=== PATIENT | male | born 1960 | race Caucasian/White ===

== ENCOUNTER 2016-05-26 18:46 | Inpatient (IN) | payer BC ==
[~2016-05-26] VITALS: Ht 185.4 cm; Wt 147.9 kg
--- NOTE | ~2016-05-26 | PR ---
[place], [place] PROGRESS NOTE NAME: [id number] UNIT #: [id number] ROOM: 518 DOCTOR: PARAS VAZ MD BIRTHDATE: [birth year] DOS: SUBJECTIVE: The patient has had a terrible cough during the night and could not sleep much. OBJECTIVE: VITAL SIGNS: Graphic trend shows a pressure of 150/50, pulse of 94, respirations 20, temperature 98. LUNGS: Diminished breath sounds, few scattered wheezes heard this morning. HEART: Regular. ABDOMEN: Obese. EXTREMITIES: Without any edema. ASSESSMENT AND PLAN: 1. Cough with difficulty breathing and hypoxemia, acute hypoxic respiratory failure, most likely from atelectasis and early pneumonia, possible gram negative. 2. Benign hypertension. Echocardiogram shows left ventricular hypertrophy, already on meds, advice weight loss. 3. Reactive airway disease from possible underlying pneumonia with bronchospasm, IV steroids will be added. PARAS VAZ MD CM:PNTRANS [id number] PARAS VAZ MD 07/04/16 1446 interface
--- NOTE | ~2016-05-26 | PR ---
[place], [place] PROGRESS NOTE [id number] #: [id number] ROOM: 518 DOCTOR: PARAS VAZ MD BIRTHDATE: [birth year] DOS: 05/30/2016 SUBJECTIVE: The patient is doing much better. He had a good night sleep. His cough is mostly dry now. OBJECTIVE: VITAL SIGNS: Graphic trend shows a pressure of 138/73, pulse of 98, respirations 20, temperature 97.8. LUNGS: Diminished breath sounds, few fine wheezes heard. HEART: Regular. ABDOMEN: Obese, soft. EXTREMITIES: Without any edema. ASSESSMENT AND PLAN 1. Acute asthmatic bronchitis, improving on current treatment plan. 2. Benign hypertension with LVH controlled. 3. Hypoxic respiratory failure, acute. He did not have any further desaturation on the recent exercise oximetry. He is advised to stay off from work for a week and then have a PFT scheduled as an outpatient to make sure he is not developing asthma. PARAS VAZ MD CM:PNTRANS [id number] PARAS VAZ MD 05/30/161952 interface
--- NOTE | ~2016-05-26 | DS ---
[place], [place] DISCHARGE SUMMARY NAME: [id number] UNIT #: [id number] ROOM: 518 DOCTOR: PARAS VAZ MD BIRTHDATE: [birth year] DOS: 05/30/2016 DIAGNOSES: 1. Asthmatic bronchitis. 2. Acute hypoxic respiratory failure. 3. Benign hypertension. 4. Left ventricular hypertrophy. HOSPITAL COURSE: This patient is 55 years old, comes in with complaints of cough and difficulty breathing. Please see the H and P for details. After admission, the patient was placed on IV steroids, antibiotics, breathing treatments, oxygen supplementation and mucolytics as well as cough suppressants at night. He improved relatively slowly. He does get short of breath and become tachycardic on exertion, so echocardiogram was ordered, which showed LVH, did not show any LV dysfunction. The patient is overall stable and improved. His bronchospasm is improving, not completely resolved. A CT scan of the chest was done in the Emergency Room. It showed atelectasis and bibasilar, which maybe hiding a small pneumonic infiltrate. His lactic acid was on the high end of normal at 2.0. WBC count is normal at 7.8. Comprehensive was within normal limits. The patient is able after being placed on these medications. He is improved and is not having any new problems, so the plan is to discharge him to home. He is advised to take off from work for a week and he also is advised to have the PFT as an outpatient when he is better to make sure he does not have any evidence of asthma. DISCHARGE MEDICATIONS: His home medications, which remain unchanged at lisinopril 10, hydrochlorothiazide 25, ranitidine 300, omeprazole ____. His other medications that I gave him today were DuoNeb q.8 nebulizer, doxycycline 100 b.i.d., tapering dose of prednisone and Hycodan 10 mL at bedtime. PARAS VAZ MD CM:DISCHARG 0720 141 PARAS VAZ MD 05/30/16 1410 interface
--- NOTE | ~2016-05-26 | PR ---
[place], [place] PROGRESS NOTE [id number] UNIT #: [id number] ROOM: 518 DOCTOR: PARAS VAZ MD BIRTHDATE: [birth year] DOS: 05/29/2016 SUBJECTIVE: The patient is doing fine without any complaints. He is doing much better. He slept better. OBJECTIVE: VITAL SIGNS: Graphic trend shows that he is afebrile. Blood pressure is 142/69, pulse of 105, respirations 20, and temperature 97.8. LUNGS: Clear. HEART: Regular. ABDOMEN: Obese, soft, and nontender. EXTREMITIES: Without any edema. ASSESSMENT AND PLAN: 1. Acute asthmatic bronchitis. The patient is definitely slowly improving. His cough is much looser. 2. Benign hypertension, controlled, with left ventricular hypertrophy. Advise weight loss. 3. 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 4. Hypoxic respiratory failure, acute. The patient will need exercise oximetry today. PARAS VAZ MD CM:PNTRANS [id number] PARAS VAZ MD 05/29/16 2143 interface
--- NOTE | ~2016-05-26 | WRIGHTHP ---
[place], [place] PATIENT HISTORY AND PHYSICAL EXAM NAME: RAOUL PEDRAZA SR [facility] #: [id number] UNIT #: [id number] ROOM: 518 DOCTOR: PARAS VAZ MD BIRTHDATE: [birth year] DOS: 05/27/2016 HISTORY OF PRESENT ILLNESS: The patient is 55 years old. The patient comes in with complaints of cough and shortness of breath. The patient states that in early April, he started having a chest cold. He fought it for a while, finally he was seen at [facility] and was prescribed amoxicillin. He took a full course of amoxicillin, but continued to be pretty sick and noticed increasing shortness of breath, so he decided to come into the Emergency Room. In the ER, he was evaluated and was found to be hypoxic with a saturation of ABG showing a pO2 up in the 50s. He had a CT of the chest. It showed atelectasis, possibly early pneumonia and was admitted. He denies having any complaints. This morning, he feels slightly better, he still has a cough. When he moves around, he still gets short of breath. He denies having any chest pains or palpitations. PAST MEDICAL HISTORY: Significant for hypertension. MEDICATIONS: His only medication that he takes is lisinopril and chlorthalidone. SOCIAL HISTORY: Nonsmoker, does not use any alcohol. 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 He is . His is a ER nurse. He has a one grown daughter. PHYSICAL EXAMINATION: GENERAL: He is awake and alert and oriented. VITAL SIGNS: Graphic trend shows a pressure of 146/66, pulse of 90, respirations 18, temperature 97.2. LUNGS: Diminished breath sounds. HEART: Regular. ABDOMEN: Obese. EXTREMITIES: Without any edema. LABORATORY DATA: CT of the chest shows bibasilar atelectasis, possibly underlying pneumonia. He has blood gas of ABG 7.4, pCO2 of 41, pO2 of 57, bicarbonate 27.2, oxygen saturation 91.7. WBC count is 7.8, hemoglobin 15.7, hematocrit 45.4. Comprehensive glucose 151, BUN 13. Electrolytes were normal. ASSESSMENT AND PLAN: 1. The patient who presents with cough, shortness of breath, hypoxemia and tachycardia, most likely has an underlying infectious process. Lactic acid was 2.0 and was in the higher limit of normal, possibly early sepsis from underlying pneumonia. IV antibiotics have been ordered, oxygen supplementation has been prescribed along with breathing treatments. 2. Benign hypertension. Check echocardiogram and make sure that check LV function is normal. [place], [place] PATIENT HISTORY AND PHYSICAL EXAM NAME: RAOUL PEDRAZA SR UNIT #: [id number] ROOM: 8 DOCTOR: PARAS VAZ MD BIRTHDATE: [birth year] PARAS VAZ MD CM:HISPHYS:PATIENT HISTORY AND PHYSICAL EXAMINATION 0938 [id number] PARAS VAZ MD 05/27/16 1003 interface
[2016-05-26 00:40] VITALS: BP 143/83
[2016-05-26 16:00] VITALS: BP 133/66
[~2016-05-26 18:46] MED LIST: BACTRIM DS 8001 TA1 PO; CIPRO500 MG PO; CIPROFLOXACIN500 MG PO; CLINDAMYCIN300 MG PO; FLAGYL250 MG PO; FLOMAX0.4 MG PO; K-DUR20 MEQ PO; LEVOFLOXACIN500 MG PO; NORVASC10 MG PO; PERCOCET 325 MG1 TA5; SENORMIN50 MG PO; VESICARE5 MG; VICODIN 5/500 505 MG PO; [UNRECOGNIZED DRUG - CODE] PO
[2016-05-26 18:51] VITALS: BP 162/100
[2016-05-26 19:15] VITALS: BP 160/98; BP 162/100
[2016-05-26 19:35] LABS: BASO # 0.1 10*3/uL (0.0-0.1); BASO % 0.9 % (0.0-1.0); EOS # 0.3 10*3/uL (0.0-0.4); EOS % 3.5 % (1.0-4.0); HEMATOCRIT 45.4 % (42.0-52.0); HEMOGLOBIN 15.7 g/dl (14.0-18.0); LYMPH % 12.6 % (27.0-41.0); MEAN CELL VOLUME 80.5 fl (80.0-94.0); MEAN CORPUSCULAR HGB 27.8 pg (27.0-31.0); MEAN CORPUSCULAR HGB CONC 34.6 g/dl (33.0-37.0); MEAN PLATELET VOLUME 10.5 fl (9.6-12.3); MONO # 0.7 10*3/uL (0.1-1.0); MONO % 8.9 % (3.0-9.0); NEUT # 5.7 10*3/uL (2.3-7.9); NEUT % 73.8 % (47.0-73.0); PLATELET COUNT AUTOMATED 201 10*3/uL (130-400); RED BLOOD COUNT 5.64 10*6/uL (4.50-5.90); RED CELL DISTRI WIDTH 12.5 % (0-14.5); WHITE BLOOD COUNT 7.8 10*3/uL (4.8-10.8)
[2016-05-26 19:47] LABS: PROTHROMBIN TIME 10.3 SECONDS (9.0-12.4)
[2016-05-26 19:53] LABS: ALBUMIN 3.7 gm/dl (3.1-4.5); ALKALINE PHOSPHATASE 63 U/L (45-117); BILIRUBIN, TOTAL 0.4 mg/dl (0.2-1.0); BUN 13 mg/dl (7-24); CARBON DIOXIDE 26 mmol/L (21-32); CHLORIDE 101 mmol/L (98-107); CKMB 1.3 ng/ml (0.5-3.6); CPK 156 U/L (39-308); EST GLOM FILT AFRICAN AMERICAN > 60 ml/min; GLUCOSE 161 mg/dL (65-99); POTASSIUM 3.8 mmol/L (3.5-5.1); SGOT/AST 24 IU/L (3-35); SGPT/ALT 60 U/L (12-78); SODIUM 139 mmol/L (136-145); TOTAL PROTEIN 7.7 gm/dL (6.4-8.2)
[2016-05-26 19:55] LABS: TROPONIN I < 0.015 ng/ml (<0.5)
[2016-05-26 20:15] VITALS: BP 153/86
[2016-05-26 21:39] VITALS: BP 154/79
[2016-05-26 22:19] LABS: ABG BASE EXCESS 3.2 mmol/L (-2.0-2.0); ABG CO2 CONTENT 28.4 mmol/L (23-27); ABG HCO3 27.2 mmol/l (22-26); ARTERIAL BLOOD GAS PH 7.435 (7.35-7.45)
[2016-05-26 23:09] LABS: BILIRUBIN NEGATIVE (NEGATIVE); BLOOD NEGATIVE (NEGATIVE); CLARITY CLEAR (CLEAR); COLOR YELLOW (YELLOW); GLUCOSE NEGATIVE (NEGATIVE); KETONE NEGATIVE (NEGATIVE); LEUKO ESTERASE NEGATIVE (NEGATIVE); NITRITE NEGATIVE (NEGATIVE); PH 5.5 (5.0-9.0); PROTEIN NEGATIVE (NEGATIVE); SPECIFIC GRAVITY 1.015 (1.005-1.030); UROBILINOGEN 0.2 E.U./dl (0.2-1.0)
[2016-05-26] MEDS ORDERED: OMEPRAZOLE20 M2 PO (23:10)
[2016-05-26] MEDS ORDERED: ZESTRIL10 MG PO (23:10)
[2016-05-26] MEDS ORDERED: HYDR25T PO (23:10)
[2016-05-26] MEDS ORDERED: ZANTAC 300300 MG PO (23:10)
[2016-05-26 23:16] LABS: RBC 0-2 rbc/hpf (0-2); URINE REFLEX COMMENT NO (NO); WBC 0-2 wbc/hpf (0-5)
[2016-05-27 00:40] VITALS: BP 143/83
[2016-05-27 04:00] VITALS: BP 150/79
[2016-05-27 08:00] VITALS: BP 146/66
[2016-05-27 12:00] VITALS: BP 144/76
[2016-05-27 20:00] VITALS: BP 152/70
[2016-05-28] VITALS: BP 150/50
[2016-05-28 08:00] VITALS: BP 144/76
[2016-05-28 12:00] VITALS: BP 135/80
[2016-05-28 16:00] VITALS: BP 154/94
[2016-05-28 20:00] VITALS: BP 147/81
[2016-05-29] VITALS: BP 142/69
[2016-05-29 08:00] VITALS: BP 132/84
[2016-05-29 12:00] VITALS: BP 129/81
[2016-05-29 16:00] VITALS: BP 136/78
[2016-05-29 20:00] VITALS: BP 130/82
[2016-05-30] VITALS: BP 138/73
[2016-05-30] MEDS ORDERED: PREDNISONE5 MG PO (07:13)
[2016-05-30] MEDS ORDERED: DOXYCYCLINE100 M3 PO (07:13)
[2016-05-30] MEDS ORDERED: DUONEB 3 MG/3 ML3 M1 NEB (07:13)
[2016-05-30] MEDS ORDERED: NEBULIZER (07:13)
[2016-05-30] MEDS ORDERED: HYCODAN,HYDROME10 ML PO (07:15)
[2016-05-30 08:00] VITALS: BP 142/88
[2016-06-02 00:07] LABS: B PERTUSSIS IGG AB 2.16 index (0.00-0.94); B PERTUSSIS IGM AB <1.0 index (0.0-0.9)
== END 2016-05-30 08:47 | disposition home or self-care (01) | DRG 189 ==
LOC: ED 18:46 → EDHOLD 23:55 → 5E 23:55
PROVIDERS: Emergency Medicine; Emergency Medicine Emergency Medical Services
DX: J96.01 Acute respiratory failure with hypoxia (principal); Z68.41 Body mass index [BMI] 40.0-44.9, adult; I10 Essential (primary) hypertension; J20.9 Acute bronchitis, unspecified; E66.9 Obesity, unspecified; I51.7 Cardiomegaly; Z90.49 Acquired absence of other specified parts of digestive tract

== ENCOUNTER → 2016-08-15 | Outpatient (CLI) | payer BC ==
[~2016-08-15] MED LIST changes: +DOXYCYCLINE100 M3 PO; +DUONEB 3 MG/3 ML3 M1 NEB; +HYCODAN,HYDROME10 ML PO; +HYDR25T PO; +NEBULIZER; +OMEPRAZOLE20 M2 PO; +PREDNISONE5 MG PO; +ZANTAC 300300 MG PO; +ZESTRIL10 MG PO
--- NOTE | ~2016-08-15 | PF ---
[place], [place] PULMONARY FUNCTION TEST NAME: [id number] UNIT #: [id number] ROOM: DOCTOR: GURINDER GUTIERREZ MD,ALEXANDRU BIRTHDATE: [birth year] DOS: 08/15/2016 TESTS WERE ORDERED BY: America Rodriguez MD. HISTORY: The patient reported as a 55-year-old male, height of 73 inches, weight of 300 pounds with BMI of 39.6. The height was noted 73 inches, weight of 300 pounds. The patient reported symptoms of shortness of breath with exertion, nonproductive cough. The patient reported no history of past tobacco use. SPIROMETRY: The FVC was recorded 5.11 liters at 94% predicted value normal. The FEV1 recorded at 4.01 liter for this patient as 96% predicted value normal as well. The ratio of FEV1/FVC was recorded 78%. No significant changes occurred for the patient postbronchodilator tests. Flow volume loop for this patient assessment noted as normal. The patient's lung volumes, thoracic gas volume recorded as 60%, residual volume 75%, total lung capacity normal at 93%. The lung volumes were noted normal. The patient lung diffusion noted normal at 89%. The patient's airway resistance and passive conductance noted normal; however, partial improvement occurred postbronchodilator test. FINAL IMPRESSION: Relatively normal pulmonary function test was noted for this patient at this time. ALEXANDRU FAIRCHILD MD CM:PFREPORT:PULMONARY FUNCTION TEST 1608 [id number] ALEXANDRU GUTIERREZ MD
== END | disposition home or self-care (01) ==
LOC: CP 10:23
DX: R06.02 Shortness of breath (principal)

== ENCOUNTER → 2016-08-26 | Day surgery (SDC) | payer BC ==
[~2016-08-26] VITALS: Ht 182.8 cm; Wt 136.1 kg
--- NOTE | ~2016-08-26 | PROC NOTE ---
[place], [place] PROCEDURE NOTE NAME: RAOUL PEDRAZA SR [facility] #: [id number] UNIT #: [id number] ROOM: DOCTOR: RAMONA CARROLL MD BIRTHDATE: [birth year] DOS: 08/26/2016 PREOPERATIVE DIAGNOSES: History of gastroesophageal reflux disease, family history of colon cancer, history of diverticulitis, history of polyps, lower gastrointestinal bleed. POSTOPERATIVE DIAGNOSES: History of gastroesophageal reflux disease, family history of colon cancer, history of diverticulitis, history of polyps, lower gastrointestinal bleed. PROCEDURE: EGD with colonoscopy. ENDOSCOPIST: Ramona Carroll MD WATCH DIAL STONER: YOLANDA. ANESTHESIA: MAC. INDICATIONS: This is a 55-year-old gentleman with a previous family history of colon cancer and polyps as well as lower GI bleed and diverticulitis as well as GERD, who is here for the above-mentioned procedure. The procedure and its complications were explained to the patient in detail. Complications that were discussed included, but were not limited to bleeding, missed lesions, colon and gastric perforation. He agreed to proceed. DESCRIPTION OF PROCEDURE: After identifying the patient, the patient was brought to the endoscopy suite and laid in the left lateral position. After a bite block was placed, IV sedation was administered and EGD was performed first. An adult gastroscope was introduced into the mouth and advanced sequentially into the esophagus, stomach and the first 2 parts of the duodenum. There was found to be mild gastritis in the body and the antrum of the stomach. The scope was retroflexed and these findings were confirmed. The duodenum was normal. The scope was then withdrawn and esophagus was visualized on my way out and there was no esophagitis or any lesions that could be seen. The scope was removed and attention was then turned towards performing a colonoscopy. A digital rectal exam was performed, which was within normal limits. An adult colonoscope was now introduced into the anal canal and advanced sequentially into the rectum, sigmoid colon, descending colon, transverse colon and ascending colon up to the cecum. There was severe diverticulosis that could be seen, but no obvious bleeding. Upon reaching the cecum, the scope was withdrawn. Total withdrawal time was approximately 7 minutes. The finding of severe sigmoid diverticulosis was confirmed. There were no polyps that could be visualized. Upon retroflexion of the scope in the rectum, there was found to be uncomplicated internal hemorrhoids, but no evidence of bleeding. The scope was withdrawn. The patient was taken in a stable fashion to the recovery room. Dr. Ramona Carroll, the attending surgeon, was present throughout the operating case. Based on these findings, it is recommended that the patient have his next colonoscopy in about 5 years. These findings were discussed with the patient's postoperatively. I will talk to the patient and discusse these findings with him in 2 weeks when he sees me in the office. [place], [place] PROCEDURE NOTE NAME: RAOUL PEDRAZA SR UNIT #: [id number] ROOM: DOCTOR: RAMONA CARROLL MD BIRTHDATE: [birth year] Ramona Carroll MD CM:PROCNOTE:PROCEDURE NOTE 0919 2301 RAMONA CARROLL MD
[2016-08-26 08:00] VITALS: BP 132/81
[2016-08-26 09:06] VITALS: BP 147/84
[2016-08-26 09:21] VITALS: BP 157/83
[2016-08-26 09:36] VITALS: BP 160/93
== END | disposition home or self-care (01) ==
LOC: SDC 08-22 10:15
DX: K92.2 Gastrointestinal hemorrhage, unspecified (principal); K57.30 Diverticulosis of large intestine without perforation or abscess without bleeding; K64.8 Other hemorrhoids; K29.70 Gastritis, unspecified, without bleeding; K21.9 Gastro-esophageal reflux disease without esophagitis; Z86.010 Personal history of colon polyps; Z80.0 Family history of malignant neoplasm of digestive organs; I10 Essential (primary) hypertension

== ENCOUNTER 2017-02-28 13:27 | Inpatient (IN) | payer OTHER ==
[2017-02-28] VITALS (17 sets, daily range): BP systolic 146–240; BP diastolic 64–138
[~2017-02-28] VITALS: Ht 185.4 cm; Wt 150.8 kg
--- NOTE | ~2017-02-28 | DS ---
[place], [place] DISCHARGE SUMMARY NAME: RAOUL PEDRAZA SR [facility] #: [id number] UNIT #: [id number] ROOM: [facility] DOCTOR: PARAS VAZ MD BIRTHDATE: [birth year] DOS: 03/02/2017 DIAGNOSES: 1. Poorly controlled hypertension. 2. Possible renal artery stenosis. MRA of the renal arteries is pending. 3. Small vessel disease of the brain with normal carotid Doppler. Echocardiogram is not available at the time of dictation. 4. Gastroesophageal reflux disease. HOSPITAL COURSE: This patient is very well known to us from previous admission. He was brought in with extremely elevated blood pressures, tingling of the left side of the face. Please refer to H and P for details. After admission, he had a complete workup, placed on multiple new medications including nicardipine and the ER pressures are much improved. A Cardiology consultation was obtained. Echocardiogram was performed. MRI of the brain as well as carotid Doppler was done, shows small vessel disease without any evidence of carotid atherosclerosis. A renal ultrasound was performed, which showed a possibility of renal artery stenosis, so MRA of the renal arteries has been performed. We do not have the results of that yet, but the patient can be discharged after the procedure is performed. The patient is encouraged to quit drinking caffeinated drinks. DISCHARGE MEDICATIONS: Metoprolol 50 b.i.d., amlodipine 5 daily, losartan 100 daily, simvastatin 10 daily, hydrochlorothiazide 25 daily, ranitidine 300 at bedtime. PARAS VAZ MD CM:DISCHARG 2 16 PARAS VAZ MD 03/02/171715 interface
--- NOTE | ~2017-02-28 | PR ---
[place], [place] PROGRESS NOTE [id number] #: [id number] [facility]OM: [facility] DOCTOR: PARAS VAZ MD BIRTHDATE: [birth year] DOS: SUBJECTIVE: The patient is doing fine without any complaints. Denies any chest pains, palpitations or shortness of breath. Pressures ____ within normal limits. OBJECTIVE: VITAL SIGNS: Graphic trend shows blood pressure 150/90, pulse of 60, respirations 14, temperature 97.5. LUNGS: Diminished breath sounds. No wheezes, rales or rhonchi heard. HEART: Regular. ABDOMEN: Obese. EXTREMITIES: Without any edema. ASSESSMENT AND PLAN: 1. Uncontrolled hypertension, possibility of renal artery stenosis is high here, especially with the abnormal renal ultrasound. The patient is going to have an MRA of the renal arteries this morning and after that the patient should be able to go home. 2. Hypertension, poorly controlled. Pressures are much improved after adjustments in medicines made. PARAS VAZ MD CM:PNTRANS 0 04 PARAS VAZ MD 03/02/172103 interface
--- NOTE | ~2017-02-28 | WRIGHTHP ---
[place], [place] PATIENT HISTORY AND PHYSICAL EXAM NAME: RAOUL PEDRAZA SR [facility] #: [id number] UNIT #: [id number] [facility]OM: [facility] DOCTOR: PARAS VAZ MD BIRTHDATE: [birth year] DOS: 02/28/2017 HISTORY OF PRESENT ILLNESS: The patient is 56 years old. The patient was at work yesterday had a meeting, which was a cordial meeting and after the meeting, he noticed that he was having some tingling of his left side of his face. He called his son who works with him, checked his blood pressure, was in 200s systolic, diastolic in the 130s range. He said that he sat for a while, decided to calm down and try to see whether the blood pressure will come down on its own. Rechecked the blood pressure in about 10 minutes, the pressure did not come down, so he decided to come in to the Emergency Room. Where he was placed on medications and the blood pressure has come down over the night. This morning, he does not have any complaints. Denies any chest pains, palpitations or shortness of breath. Denies having any fever or chills, numbness and tingling has resolved. Denies having any nausea, any emesis, any chest pains or palpitations. PAST MEDICAL HISTORY: Significant for; 1. History of hospitalization a year ago with asthmatic exacerbation. 2. Benign hypertension. 3. Gastroesophageal reflux disease. MEDICATIONS: Hydrochlorothiazide 25 daily, lisinopril 10 daily, omeprazole 20 daily, ranitidine 300 at bedtime. SOCIAL HISTORY: Nonsmoker, does not use any alcohol. He is , lives at home. 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 PHYSICAL EXAMINATION: GENERAL: He is awake and alert and oriented, in no distress. VITAL SIGNS: Graphic trend shows that he is afebrile. Heart rate in the 50s, blood pressure 160/100 this morning, respirations 12, temperature 97.8. LUNGS: Diminished breath sounds. No wheezes, rales or rhonchi heard. HEART: Regular. ABDOMEN: Obese, soft, nontender. EXTREMITIES: Without any edema. LABORATORY DATA: Glucose 95, BUN 9, creatinine 0.73. Electrolytes were normal. WBC count is 7.3, hemoglobin 15.6, hematocrit 44.4. CT of the head was unremarkable. A chest x-ray shows no pathology. ASSESSMENT AND PLAN: 1. Hypertension, uncontrolled. The patient is going to have an echocardiogram. Further adjustments in meds have been made. Cardiology was consulted. 2. Numbness and tingling of the left side of the face with negative CT. We will need to rule out a neurological event. An MRI of the brain and carotid Dopplers obtained. If the pressures do not come down under control, we need to consider MRA of the renal arteries. 3. Gastroesophageal reflux disease. We will restart Zantac. Advised the [place], [place] PATIENT HISTORY AND PHYSICAL EXAM NAME: [facility]OUL [id number] #: [id number] [facility]: [facility] DOCTOR: PARAS VAZ MD BIRTHDATE: [birth year] patient to cut back on the caffeinated drinks. He apparently drinks 4 cans of Coke everyday. PARAS VAZ MD CM:HISPHYS:PATIENT HISTORY AND PHYSICAL EXAMINATION 6 115 PARAS VAZ MD 03/01/17 1150 interface
[2017-02-28 14:00] LABS: BASO # 0.1 10*3/uL (0.0-0.1); BASO % 0.7 % (0.0-1.0); EOS # 0.4 10*3/uL (0.0-0.4); EOS % 5.1 % (1.0-4.0); HEMATOCRIT 44.4 % (42.0-52.0); HEMOGLOBIN 15.6 g/dl (14.0-18.0); LYMPH # 1.6 10*3/uL (1.3-4.4); LYMPH % 22.2 % (27.0-41.0); MEAN CELL VOLUME 80.1 fl (80.0-94.0); MEAN CORPUSCULAR HGB 28.2 pg (27.0-31.0); MEAN CORPUSCULAR HGB CONC 35.1 g/dl (33.0-37.0); MONO # 0.5 10*3/uL (0.1-1.0); MONO % 6.3 % (3.0-9.0); NEUT # 4.7 10*3/uL (2.3-7.9); PLATELET COUNT AUTOMATED 180 10*3/uL (130-400); RED BLOOD COUNT 5.54 10*6/uL (4.50-5.90); WHITE BLOOD COUNT 7.3 10*3/uL (4.8-10.8)
[2017-02-28 14:14] LABS: ALBUMIN 3.8 gm/dl (3.1-4.5); ALKALINE PHOSPHATASE 60 U/L (45-117); BUN 9 mg/dl (7-24); CHLORIDE 105 mmol/L (98-107); CREATININE 0.73 mg/dL (0.70-1.30); POTASSIUM 3.8 mmol/L (3.5-5.1); SGOT/AST 23 IU/L (3-35); SGPT/ALT 42 U/L (12-78); SODIUM 140 mmol/L (136-145); TOTAL PROTEIN 7.1 gm/dL (6.4-8.2)
--- NOTE | 2017-02-28 14:21 | NUR ---
IV NICARDIPINE BEING TITRATED PER PROTOCOL.DRIPPING AT 10 MG/HR AT THIS TIME.SEE VITALS FOR BP CHECKS.---ANA AVITIA RN
--- NOTE | 2017-02-28 14:32 | NUR ---
PT STILL C/O HEADACHE,HE IS IN A DARK QUIET ROOM.IV DRIP BEING ADJUSTED TO HELP LOWER BP PER PROTOCOL---ANA AVITIA RN
--- NOTE | 2017-02-28 14:38 | NUR ---
HEADACHE REMAINS DESPITE IMPROVED BP. DR SMILEY WILL ORDER HEAD CT NOW.
--- NOTE | 2017-02-28 14:54 | NUR ---
PT IS IN CT AT THIS TIME.CT HEAD ORDERED FOR C/O HEADACHE DESPITE BP BEING LOWERED.---ANA AVITIA RN
--- NOTE | 2017-02-28 15:37 | NUR ---
HEADACHE PAIN 10 NOW. REPATED BP 150/79
--- NOTE | 2017-02-28 15:40 | NUR ---
A 56, admitted to [facility], under the services of PARAS Beltran MD with a diagnosis of HYPERTENSIVE URGENCY. Chief complaint is HEADACHE,ELEVATED BP. Patient arrived via stretcher from ER. Monitor applied. Initial assessment completed. Vital signs taken and recorded. PARAS BELTRAN MD notified of admission to the unit. Orders received. See assessment for past medical history, medications and allergies. Patient and/or family oriented to unit. [facility] visitation policy reviewed. Clothing/patient valuable form completed. PATRICIA GRANADOS
--- NOTE | 2017-02-28 16:31 | NUR ---
[facility] C[facility]IOLOG[facility] ANSWERING SERVICE TOOK INFO ON CONSULTATION.
--- NOTE | 2017-02-28 16:42 | NUR ---
DR TAMEZ CALLED BACK, REVIEWED VITALS AND RX WITH HIM. NO NEW ORDERS FROM HIM.
--- NOTE | 2017-02-28 17:39 | NUR ---
SLEEPING AT PRESENT. HE DECLINED ANY DINNER WHEN ASKED EARLIER. "I DON'T HAVE MUCH OF AN APPETITE"
--- NOTE | 2017-02-28 20:24 | NUR ---
1930 RESTING IN BED TALKING WITH . ATE PART OF SUPPER. ALERT AND PLEASANT. SPEECH CLEAR. MOVES ALL EXTREMITIES. HEP LOCK INTACT. NICARDIPINE GTT OFF. DENIES ANY C/O'S OF PAIN AT PRESENT.
--- NOTE | 2017-02-28 21:21 | NUR ---
2100 MEDICATED WITH TYLENOL 2 PO FOR C/O'S H/A. RATES A"6". WILL MONITOR. FIRST DOSE OF LOPRESSOR GIVEN ORDERED.
--- NOTE | 2017-02-28 21:49 | NUR ---
EARLIER TYLENOL EFFECTIVE. RESTING IN BED WATCHING TV.
--- NOTE | 2017-02-28 22:04 | NUR ---
REMAINS RESTING IN BED WATCHING TV. HEP LOCK INTACT. NO DISTRESS NOTED. CONDITION GUARDED.
--- NOTE | 2017-02-28 23:00 | NUR ---
PT BP REMAINS ELEVATED AT 179/98. MANUAL BP IS COMPARABLE AT 180/100. DR. VAZ CALLED - ORDERS RECEIVED.
--- NOTE | 2017-02-28 23:19 | NUR ---
ONE TIME DOSE OF NORVASC 10MG PO GIVEN PER ORDER. WILL CONT TO MONITOR.
--- NOTE | 2017-02-28 23:30 | NUR ---
PATIENT LYING IN BED, DENIES ANY CHEST PAIN, STATED THE TINGLING ON LEFT SIDE OF FACE WAS THERE SLIGHTLY. PATIENT STATED HE STILL HAD A SLIGHT HEADACHE. NOT TIME FOR TYLENOL, BUT PATIENT STATED HE WAS JUST GONNA TRY AND GET SOME SLEEP. WILL CONTINUE TO MONITOR BLOOD PRESSURE. PATIENT LEFT WITH CALL LIGHT IN REACH.
[2017-03-01] VITALS (8 sets, daily range): BP systolic 135–168; BP diastolic 63–100
--- NOTE | 2017-03-01 | NUR ---
PATIENTS BLOOD PRESSURE HAS IMPROVED. 135/63 AFTER NORVASC. WILL CONTINUE TO MONITOR.
[2017-03-01 05:36] LABS: BUN 12 mg/dl (7-24); CHLORIDE 104 mmol/L (98-107); CHOLESTEROL 173 mg/dL (<200); CREATININE 0.93 mg/dL (0.70-1.30); HDL CHOLESTEROL 34 mg/dl (40-60); LDL CHOLESTEROL 112 mg/dL (9-159); POTASSIUM 3.9 mmol/L (3.5-5.1); SODIUM 141 mmol/L (136-145); TRIGLYCERIDES 135 mg/dl (<150); VLDL CHOLESTEROL 27 mg/dL (6-40)
[2017-03-01 06:10] LABS: BASO # 0.1 10*3/uL (0.0-0.1); BASO % 0.7 % (0.0-1.0); EOS # 0.4 10*3/uL (0.0-0.4); HEMATOCRIT 45.3 % (42.0-52.0); HEMOGLOBIN 15.2 g/dl (14.0-18.0); LYMPH # 1.9 10*3/uL (1.3-4.4); LYMPH % 25.7 % (27.0-41.0); MEAN CELL VOLUME 81.3 fl (80.0-94.0); MEAN CORPUSCULAR HGB 27.3 pg (27.0-31.0); MEAN CORPUSCULAR HGB CONC 33.6 g/dl (33.0-37.0); MEAN PLATELET VOLUME 10.6 fl (9.6-12.3); MONO # 0.6 10*3/uL (0.1-1.0); MONO % 7.6 % (3.0-9.0); NEUT # 4.5 10*3/uL (2.3-7.9); NEUT % 60.6 % (47.0-73.0); PLATELET COUNT AUTOMATED 178 10*3/uL (130-400); RED BLOOD COUNT 5.57 10*6/uL (4.50-5.90); RED CELL DISTRI WIDTH 13.2 % (0-14.5); WHITE BLOOD COUNT 7.5 10*3/uL (4.8-10.8)
--- NOTE | 2017-03-01 07:12 | NUR ---
Shift chart check completed.24 HR chart check completed.
--- NOTE | 2017-03-01 08:00 | NUR ---
ON ASSESSMENT PATIENT ALERT AND ORIENTED, MOVING ALL EXTREMITIES. TONGUE MIDLINE, SMILE SYMMETRICAL. PT REMAINS HYPERTENSIVE. DR VAZ HAS VISITED AND IS AWARE OF BP.
--- NOTE | 2017-03-01 08:00 | NUR ---
[facility] in to talk to patient. Patient states lives at HOME with HIS FAMILY. There are 0 steps in the home. Physician: DR VAZ Pharmacy: [facility] Home health services: NONE Patient's level of ADLs: INDEPENDENT Patient has working utilities: YES DME: NONE Follow-up physician's appointment after d/c: PREFERS TO MAKE HIS OWN APPT Does patient want to access PORTAL?: Discharge plan HOME. DARCY OWENS
--- NOTE | 2017-03-01 10:00 | NUR ---
PT HAS HAD HIS MRI OF THE BRAIN AND CAROTID DOPPLER DONE.
--- NOTE | 2017-03-01 14:43 | NUR ---
PT HAS BEEN TO RADIOLOGY AGAIN FOR RENAL DOPPLER AND IS BACK, GOING TO ORDER HIS LUNCH. NO VOICED COMPLAINTS AT PRESENT.
--- NOTE | 2017-03-01 16:16 | NUR ---
DR TOLEDO NOTIFIED OF RENAL DOPPLER RESULTS.
--- NOTE | 2017-03-01 16:22 | NUR ---
DR GOINS NOTIFIED OF THE RENAL DOPPLER RESULTS. NO NEW ORDERS AT THIS TIME.
--- NOTE | 2017-03-01 16:57 | NUR ---
NOTIFIED DR VAZ OF THE RENAL DOPPLER RESULTS AND ORDERS RECEIVED.
--- NOTE | 2017-03-01 17:41 | NUR ---
ECHO WAS COMPLETED EARLIER.
--- NOTE | 2017-03-01 20:02 | NUR ---
TYLENOL FOR THE "STARTING OF A HEADACHE" AT 1935. PT WITHOUT OTHER COMPLAINTS. VSS.
--- NOTE | 2017-03-01 20:57 | NUR ---
PT'S ASSISTING HIM WITH A BATH.
--- NOTE | 2017-03-01 23:00 | NUR ---
TYLENOL WAS EFFECTIVE FOR HEADACHE.
[2017-03-02] VITALS: BP 148/97
--- NOTE | 2017-03-02 | NUR ---
PATIENT LYING IN BED, VOICES NO COMPLAINTS AT THIS TIME. PATIENT AWARE OF NPO STATUS FOR FURTHER TESTING IN THE AM. WILL CONTINUE TO MONITOR. PATIENT LEFT WITH CALL LIGHT IN REACH.
[2017-03-02 04:00] VITALS: BP 155/88
[2017-03-02] MEDS ORDERED: LOSARTAN POTAS100 M1 PO (07:56)
[2017-03-02] MEDS ORDERED: ZOCOR10 MG PO (07:56)
[2017-03-02] MEDS ORDERED: AMLODIPINE BESYL5 MG PO (07:56)
[2017-03-02] MEDS ORDERED: METOPROLOL TART50 M1 PO (07:56)
[2017-03-02 08:00] VITALS: BP 150/90
[2017-03-02 11:49] VITALS: BP 161/83
--- NOTE | 2017-03-02 12:06 | NUR ---
Discharge instructions reviewed with patient/family. Patient receptive and verbalizes understanding. Follow-up care arranged. Written instructions given to patient/family. PATRICIA GRANADOS
--- NOTE | 2017-03-02 12:07 | NUR ---
PT DISCHARGED AT THIS TIME TO HOME.
== END 2017-03-02 12:07 | disposition home or self-care (01) | DRG 305 ==
LOC: ED 13:27 → ICCU 15:08 → EDHOLD 15:08 → ICCU 15:33
PROVIDERS: Emergency Medicine; ADMIT Internal Medicine
DX: I16.0 Hypertensive urgency (principal); I67.89 Other cerebrovascular disease; R00.1 Bradycardia, unspecified; K21.9 Gastro-esophageal reflux disease without esophagitis; E11.9 Type 2 diabetes mellitus without complications; I10 Essential (primary) hypertension; Z79.899 Other long term (current) drug therapy; Z90.49 Acquired absence of other specified parts of digestive tract; Z80.0 Family history of malignant neoplasm of digestive organs; Z82.49 Family history of ischemic heart disease and other diseases of the circulatory system; I70.1 Atherosclerosis of renal artery; J45.909 Unspecified asthma, uncomplicated

== ENCOUNTER → 2022-02-16 | Outpatient (CLI) | payer OTHER ==
[~2022-02-16] MED LIST changes: +'CLONIDINE0.1 MG PO; +AMLODIPINE BESYL5 MG PO; +LOSARTAN POTAS100 M1 PO; +METFORMIN HYDR500 MG PO; +METOPROLOL TART50 M1 PO; +ZOCOR10 MG PO
== END | disposition home or self-care (01) ==
LOC: LAB 11:12
PROVIDERS: ATTEND Internal Medicine
DX: Z12.5 Encounter for screening for malignant neoplasm of prostate (principal)

== ENCOUNTER → 2022-03-07 | Outpatient (CLI) | payer OTHER | END | disposition short-term general hospital (02) | LOC: CARD 08:28 | PROVIDERS: ATTEND Internal Medicine | DX: R06.02 Shortness of breath (principal) ==

== ENCOUNTER → 2022-03-08 | Outpatient (CLI) | payer OTHER | END | disposition home or self-care (01) | LOC: US 02:09 | PROVIDERS: ATTEND Internal Medicine | DX: I65.23 Occlusion and stenosis of bilateral carotid arteries (principal) ==

== ENCOUNTER → 2022-06-09 | Outpatient (CLI) | payer OTHER ==
[2022-06-09 09:13] LABS: BASO # 0.1 10*3/uL (0.0-0.1); BASO % 0.7 % (0.0-1.0); EOS # 0.2 10*3/uL (0.0-0.4); EOS % 2.9 % (1.0-4.0); HEMATOCRIT 46.5 % (42.0-52.0); LYMPH # 1.5 10*3/uL (1.3-4.4); MEAN CELL VOLUME 78.8 fl (80.0-94.0); MEAN CORPUSCULAR HGB 27.6 pg (27.0-31.0); MEAN CORPUSCULAR HGB CONC 35.1 g/dl (33.0-37.0); MEAN PLATELET VOLUME 10.6 fl (9.6-12.3); MONO # 0.4 10*3/uL (0.1-1.0); MONO % 5.5 % (3.0-9.0); NEUT % 69.5 % (47.0-73.0); PLATELET COUNT AUTOMATED 166 10*3/uL (130-400); RED CELL DISTRI WIDTH 12.9 % (0-14.5); WHITE BLOOD COUNT 7.2 10*3/uL (4.8-10.8)
[2022-06-09 09:32] LABS: ALKALINE PHOSPHATASE 58 U/L (46-116); BUN 10 mg/dl (9-23); CHLORIDE 99 mmol/L (98-107); CHOLESTEROL 141 mg/dL (<200); FREE T4 1.23 ng/dl (0.89-1.76); LDL CHOLESTEROL 73 mg/dL (9-159); POTASSIUM 3.9 mmol/L (3.4-5.1); SGPT/ALT 61 U/L (10-49); THYROID STIM HORMONE (HS) 1.992 uIU/ml (0.550-4.780); TRIGLYCERIDES 150 mg/dl (<150)
[2022-06-09 09:44] LABS: VITAMIN D, 25-HYDROXY 19.2 ng/mL (30-100)
== END | disposition home or self-care (01) ==
LOC: LAB 08:37
PROVIDERS: ATTEND Internal Medicine
DX: Z13.220 Encounter for screening for lipoid disorders (principal); Z13.228 Encounter for screening for other metabolic disorders; Z13.89 Encounter for screening for other disorder; Z13.21 Encounter for screening for nutritional disorder; Z13.0 Encounter for screening for diseases of the blood and blood-forming organs and certain disorders involving the immune mechanism; Z13.1 Encounter for screening for diabetes mellitus; D50.9 Iron deficiency anemia, unspecified; E03.9 Hypothyroidism, unspecified; D51.9 Vitamin B12 deficiency anemia, unspecified; E55.9 Vitamin D deficiency, unspecified; R79.89 Other specified abnormal findings of blood chemistry; R53.83 Other fatigue

== ENCOUNTER → 2023-11-29 | Outpatient (CLI) | payer OTHER ==
[2023-11-29 11:37] LABS: BASO # 0.1 10*3/uL (0.0-0.1); BASO % 0.8 % (0.0-1.0); EOS # 0.2 10*3/uL (0.0-0.4); EOS % 2.6 % (1.0-4.0); HEMATOCRIT 45.1 % (42.0-52.0); LYMPH # 1.7 10*3/uL (1.3-4.4); LYMPH % 25.9 % (27.0-41.0); MEAN CELL VOLUME 79.5 fl (80.0-94.0); MEAN CORPUSCULAR HGB 27.7 pg (27.0-31.0); MEAN CORPUSCULAR HGB CONC 34.8 g/dl (33.0-37.0); MEAN PLATELET VOLUME 10.5 fl (9.6-12.3); MONO # 0.4 10*3/uL (0.1-1.0); NEUT # 4.2 10*3/uL (2.3-7.9); NEUT % 64.5 % (47.0-73.0); PLATELET COUNT AUTOMATED 171 10*3/uL (130-400); RED BLOOD COUNT 5.67 10*6/uL (4.50-5.90); RED CELL DISTRI WIDTH 13.9 % (0-14.5); WHITE BLOOD COUNT 6.5 10*3/uL (4.8-10.8)
[2023-11-29 12:04] LABS: ALKALINE PHOSPHATASE 55 U/L (46-116); BUN 9 mg/dl (9-23); CHLORIDE 106 mmol/L (98-107); CHOLESTEROL 182 mg/dL (<200); FREE T4 1.26 ng/dl (0.89-1.76); LDL CHOLESTEROL 120 mg/dL (9-159); POTASSIUM 3.8 mmol/L (3.4-5.1); SGPT/ALT 41 U/L (5-49); TOTAL PROTEIN 7.7 gm/dL (6.0-8.0); TRIGLYCERIDES 112 mg/dl (<150)
[2023-11-29 12:26] LABS: VITAMIN D, 25-HYDROXY 34.8 ng/mL (30-100)
== END | disposition home or self-care (01) ==
LOC: LAB 10:53
PROVIDERS: ATTEND Internal Medicine
DX: Z13.21 Encounter for screening for nutritional disorder (principal); Z13.0 Encounter for screening for diseases of the blood and blood-forming organs and certain disorders involving the immune mechanism; Z13.220 Encounter for screening for lipoid disorders; Z13.1 Encounter for screening for diabetes mellitus; Z13.228 Encounter for screening for other metabolic disorders; Z13.29 Encounter for screening for other suspected endocrine disorder; Z13.6 Encounter for screening for cardiovascular disorders; Z13.89 Encounter for screening for other disorder; Z13.9 Encounter for screening, unspecified

== ENCOUNTER → 2024-08-09 | Outpatient (CLI) | payer OTHER ==
[2024-08-09 09:08] LABS: BASO # 0.1 10*3/uL (0.0-0.1); BASO % 0.9 % (0.0-1.0); EOS # 0.2 10*3/uL (0.0-0.4); EOS % 2.9 % (1.0-4.0); HEMATOCRIT 45.9 % (42.0-52.0); MEAN CELL VOLUME 79.3 fl (80.0-94.0); MEAN CORPUSCULAR HGB 26.9 pg (27.0-31.0); MEAN PLATELET VOLUME 10.1 fl (9.6-12.3); MONO # 0.4 10*3/uL (0.1-1.0); MONO % 5.6 % (3.0-9.0); NEUT # 4.5 10*3/uL (2.3-7.9); NEUT % 68.1 % (47.0-73.0); PLATELET COUNT AUTOMATED 176 10*3/uL (130-400); RED BLOOD COUNT 5.79 10*6/uL (4.50-5.90); RED CELL DISTRI WIDTH 13.5 % (0-14.5); WHITE BLOOD COUNT 6.6 10*3/uL (4.8-10.8)
[2024-08-09 09:49] LABS: ALKALINE PHOSPHATASE 64 U/L (46-116); BUN 11 mg/dl (9-23); CHLORIDE 107 mmol/L (98-107); CHOLESTEROL 149 mg/dL (<200); FREE T4 1.27 ng/dl (0.89-1.76); LDL CHOLESTEROL 95 mg/dL (9-159); POTASSIUM 3.8 mmol/L (3.4-5.1); SGPT/ALT 18 U/L (5-49); TRIGLYCERIDES 92 mg/dl (<150)
[2024-08-09 09:52] LABS: VITAMIN D, 25-HYDROXY 35.4 ng/mL (30-100)
== END | disposition home or self-care (01) ==
LOC: LAB 08:29
PROVIDERS: Internal Medicine; ATTEND Urology
DX: I10 Essential (primary) hypertension (principal); E11.65 Type 2 diabetes mellitus with hyperglycemia; E78.2 Mixed hyperlipidemia; R53.83 Other fatigue; E53.9 Vitamin B deficiency, unspecified; E55.9 Vitamin D deficiency, unspecified